=== PATIENT | female | born 1955 | race African-American/Black ===

== ENCOUNTER 2018-07-02 01:16 | Inpatient (IN) | payer MEDICAID, OTHER ==
[~2018-07-02] VITALS: Ht 162.6 cm; Wt 86.2 kg
[2018-07-02] MEDS ORDERED: ONDANSETRON HCL 4MG/2ML INJ IV STA (02:21)
[2018-07-02] MEDS ORDERED: SODIUM CHLORIDE 0.9% 1,000 ML IV ONE (02:21)
[2018-07-02 03:19] LABS: CHLORIDE 88 mEq/L (98-107)
[2018-07-02 03:21] LABS: BASOPHILS % 0.3 % (0.0-2.0); EOSINOPHILS % 0.4 % (0.0-5.0); HEMATOCRIT. 38.7 % (36.0-48.0); HEMOGLOBIN. 13.2 g/dL (12.0-16.0); LYMPHOCYTES % 23.1 % (20.0-50.0); MEAN CORPUSCULAR VOLUME 84.6 fL (81.0-99.0); MEAN PLATELET VOLUME 8.8 fl (7.4-10.4); MONOCYTES % 10.4 % (2.0-8.0); NEUTROPHILS % 65.8 % (40.0-76.0); PLATELET 362 x1000/uL (130-400); RED BLOOD CELL COUNT 4.57 mill/uL (4.2-5.4); RED CELL DISTRIBUTION WIDTH 12.5 % (11.6-14.6)
[2018-07-02 04:36] LABS: CLARITY URINE CLOUDY (CLEAR); COLOR URINE YELLOW (YELLOW); KETONES URINE NEGATIVE (NEGATIVE); LEUKOCYTE ESTERASE URINE 2+ (NEGATIVE); NITRITE URINE NEGATIVE (NEGATIVE); OCCULT BLOOD URINE NEGATIVE (NEGATIVE); PROTEIN URINE 1+ (NEGATIVE); SPECIFIC GRAVITY URINE 1.013 (1.005-1.030); UROBILINOGEN URINE 0.2 E.U./dL (0.2-1.0)
[2018-07-02 09:00] VITALS: BP_SYST 95; BP_SYST 96; BP_DIAS 51
[2018-07-02] MEDS ORDERED: ACETAMINOPHEN 325MG TABLET PO PRN (10:45)
[2018-07-02] MEDS ORDERED: IPRATROPIUM/ALBUTEROL 0.5-3(2.5)MG/3ML NEB INH PRN (10:45)
[2018-07-02] MEDS ORDERED: DEXTROSE 50% WATER 50ML SYRINGE IV PRN (10:45)
[2018-07-02] MEDS ORDERED: NITROGLYCERIN 0.4MG TABLET SL SL PRN (10:45)
[2018-07-02] MEDS ORDERED: DOCUSATE SODIUM 100MG CAPSULE PO PRN (10:45)
[2018-07-02] MEDS ORDERED: TRAMADOL 50MG TABLET PO PRN (10:45)
[2018-07-02] MEDS ORDERED: CLONIDINE 0.1MG TABLET PO PRN (10:45)
[2018-07-02] MEDS ORDERED: GUAIFENESIN 200MG/10ML SUGAR FREE UDC PO PRN (10:45)
[2018-07-02] MEDS ORDERED: MAGNESIUM/ALUMINUM HYDROXIDE/SIMETHICONE 30ML UDC PO PRN (10:45)
[2018-07-02] MEDS ORDERED: ENOXAPARIN 40MG/0.4ML SYR SUBCUT SCH (10:45)
[2018-07-02] MEDS ORDERED: ONDANSETRON HCL 4MG/2ML INJ IV PRN (10:45)
[2018-07-02 12:01] VITALS: BP 122/67
[2018-07-02] MEDS ORDERED: METF-414 MT (12:06)
[2018-07-02] MEDS: SUCRALFATE 1 G/10 ML UDC PO SCH ×3 (12:31→21:34)
[2018-07-02] MEDS: SODIUM CHLORIDE 0.9% 1,000 ML IV SCH ×2 (12:31→21:34)
[2018-07-02] MEDS: ENOXAPARIN 30MG/0.3ML SYR SUBCUT SCH (12:33)
[2018-07-02] MEDS ORDERED: LEVOFLOXACIN 500MG PREMIX 100 ML IV NR (13:00)
[2018-07-02] MEDS: CEFTRIAXONE 1 G PREMIX 50 ML IV SCH (13:09)
[2018-07-02] MEDS: INSULIN LISPRO 100 UNITS/ML SUBCUT SCH ×3 (13:12→21:00)
[2018-07-02] MEDS: BLOOD SUGAR DIAGNOSTIC STRIP TEST SCH ×3 (13:12→21:35)
[2018-07-02 15:45] LABS: CREATINE KINASE 39 IU/L (26-192)
[2018-07-02 15:46] LABS: CREATINE KINASE MB FRACTION < 1.0 ng/mL (0.5-3.6)
[2018-07-02 16:32] VITALS: BP 97/49
[2018-07-02 20:00] VITALS: BP 123/70
[2018-07-02] MEDS ORDERED: ZOLPIDEM TARTRATE 5MG TABLET PO PRN (21:00)
[2018-07-02] MEDS: FAMOTIDINE 20MG TABLET PO SCH (21:34)
[2018-07-02 23:15] LABS: CREATINE KINASE 40 IU/L (26-192)
[2018-07-02 23:30] LABS: CREATINE KINASE MB FRACTION < 1.0 ng/mL (0.5-3.6)
[2018-07-03] VITALS: BP 109/58
[2018-07-03 04:00] VITALS: BP 127/52
[2018-07-03 06:09] LABS: BASOPHILS % 0.4 % (0.0-2.0); EOSINOPHILS % 1.8 % (0.0-5.0); HEMATOCRIT. 31.9 % (36.0-48.0); HEMOGLOBIN. 10.5 g/dL (12.0-16.0); LYMPHOCYTES % 35.6 % (20.0-50.0); MEAN CORPUSCULAR HEMOGLOBIN 28.1 pg (28.0-32.0); MEAN CORPUSCULAR VOLUME 85.1 fL (81.0-99.0); MEAN PLATELET VOLUME 8.7 fl (7.4-10.4); NEUTROPHILS % 50.2 % (40.0-76.0); PLATELET 273 x1000/uL (130-400); RED BLOOD CELL COUNT 3.75 mill/uL (4.2-5.4); RED CELL DISTRIBUTION WIDTH 12.4 % (11.6-14.6)
[2018-07-03 06:32] LABS: CHLORIDE 97 mEq/L (98-107)
[2018-07-03] MEDS: SODIUM CHLORIDE 0.9% 1,000 ML IV SCH ×2 (06:41→21:02)
[2018-07-03] MEDS: SUCRALFATE 1 G/10 ML UDC PO SCH ×4 (06:42→21:02)
[2018-07-03] MEDS: BLOOD SUGAR DIAGNOSTIC STRIP TEST SCH ×5 (06:43→21:16)
[2018-07-03 07:50] VITALS: BP 95/59
[2018-07-03] MEDS: FAMOTIDINE 20MG TABLET PO SCH (08:19)
[2018-07-03] MEDS: ENOXAPARIN 30MG/0.3ML SYR SUBCUT SCH (08:21)
[2018-07-03] MEDS: INSULIN LISPRO 100 UNITS/ML SUBCUT SCH ×4 (08:25→21:00)
[2018-07-03 12:08] VITALS: BP 120/67
[2018-07-03] MEDS: CEFTRIAXONE 1 G PREMIX 50 ML IV SCH (12:58)
[2018-07-03 15:49] VITALS: BP 84/49
[2018-07-03 20:04] VITALS: BP 110/55
[2018-07-03] MEDS ORDERED: LEVOFLOXACIN 250MG PREMIX 50 ML IV SCH (21:00)
[2018-07-04] VITALS: BP 115/63
[2018-07-04] MEDS: SODIUM CHLORIDE 0.9% 1,000 ML IV SCH (02:41)
[2018-07-04 04:00] VITALS: BP 156/84
[2018-07-04] MEDS: SUCRALFATE 1 G/10 ML UDC PO SCH ×2 (05:59→13:32)
[2018-07-04 06:00] VITALS: BP 131/71
[2018-07-04 08:00] VITALS: BP 132/79
[2018-07-04] MEDS ORDERED: ENOXAPARIN 30MG/0.3ML SYR SUBCUT SCH (09:00)
[2018-07-04] MEDS: INSULIN LISPRO 100 UNITS/ML SUBCUT SCH ×2 (09:17→13:36)
[2018-07-04] MEDS: FAMOTIDINE 20MG TABLET PO SCH (09:18)
[2018-07-04 11:48] VITALS: BP 132/79
[2018-07-04 12:00] VITALS: BP 120/79
[2018-07-04] MEDS: BLOOD SUGAR DIAGNOSTIC STRIP TEST SCH (12:20)
[2018-07-04] MEDS ORDERED: LEVOFLOXACIN 250MG PREMIX 50 ML IV SCH (13:00)
[2018-07-04] MEDS: CEFTRIAXONE 1 G PREMIX 50 ML IV SCH (13:00)
[2018-07-15] MEDS ORDERED: FAMO-135 PO (00:42)
[2018-07-15] MEDS ORDERED: ATOR10TA PO (00:42)
== END 2018-07-04 14:05 | disposition home or self-care (01) | DRG 720 ==
LOC: ER 01:16 → 6WST 06:35 → EDBEDREQ 06:37 → EDBEDREQTM 06:37 → ENRESERV 07:13
PROVIDERS: ADMIT Internal Medicine; ATTEND Internal Medicine
DX: A41.9 Sepsis, unspecified organism (principal); N17.0 Acute kidney failure with tubular necrosis; E11.9 Type 2 diabetes mellitus without complications; N13.6 Pyonephrosis; E66.9 Obesity, unspecified; D25.9 Leiomyoma of uterus, unspecified; I95.9 Hypotension, unspecified; Z68.32 Body mass index [BMI] 32.0-32.9, adult; Z90.710 Acquired absence of both cervix and uterus
CPT/HCPCS: 36415; 71045; 74176; 80048; 80061; 82550; 82553; 82962; 83036; 83605; 84484; 93005; 93970; 96361; 96374; 97162; 97166; 99291; J0696; J1650; J1815; J1956; J2405; J7030; A4315

== ENCOUNTER 2018-08-21 08:27 | Emergency (ER) | payer MEDICAID, OTHER ==
[~2018-08-21] VITALS: Ht 165.1 cm; Wt 82.0 kg
[~2018-08-21 08:27] MED LIST: ATOR10TA PO; FAMO-135 PO; METF-414 MT
[2018-08-21 09:32] LABS: CLARITY URINE TURBID (CLEAR); COLOR URINE YELLOW (YELLOW); KETONES URINE NEGATIVE (NEGATIVE); LEUKOCYTE ESTERASE URINE 3+ (NEGATIVE); NITRITE URINE NEGATIVE (NEGATIVE); OCCULT BLOOD URINE 3+ (NEGATIVE); PROTEIN URINE 2+ (NEGATIVE); SPECIFIC GRAVITY URINE 1.011 (1.005-1.030); UROBILINOGEN URINE 0.2 E.U./dL (0.2-1.0)
[2018-08-21 09:39] LABS: BASOPHILS % 0.8 % (0.0-2.0); EOSINOPHILS % 3.4 % (0.0-5.0); HEMATOCRIT. 31.7 % (36.0-48.0); HEMOGLOBIN. 10.5 g/dL (12.0-16.0); LYMPHOCYTES % 30.6 % (20.0-50.0); MEAN CORPUSCULAR HEMOGLOBIN 28.4 pg (28.0-32.0); MEAN PLATELET VOLUME 8.2 fl (7.4-10.4); MONOCYTES % 8.5 % (2.0-8.0); NEUTROPHILS % 56.7 % (40.0-76.0); PLATELET 279 x1000/uL (130-400); RED BLOOD CELL COUNT 3.69 mill/uL (4.2-5.4); RED CELL DISTRIBUTION WIDTH 13.1 % (11.6-14.6)
[2018-08-21 09:42] LABS: CHLORIDE 107 mEq/L (98-107)
[2018-08-21] MEDS ORDERED: AMOXICILLIN 500 MG CAPSULE PO ONE (10:30)
[2018-08-21 11:05] VITALS: BP 168/90
== END 2018-08-21 11:08 | disposition home or self-care (01) ==
LOC: ER 08:34
DX: R33.9 Retention of urine, unspecified (principal); N30.00 Acute cystitis without hematuria; I10 Essential (primary) hypertension; D64.9 Anemia, unspecified; E11.9 Type 2 diabetes mellitus without complications; Z90.710 Acquired absence of both cervix and uterus; Z79.84 Long term (current) use of oral hypoglycemic drugs; Z79.899 Other long term (current) drug therapy
CPT/HCPCS: 36415; 80048; 87077; 87186; 99283